=== PATIENT | male | born 1995 | race Hispanic/Latino ===

== ENCOUNTER 2022-09-10 10:12 | Emergency (ER) | payer SELFPAY ==
[~2022-09-10] VITALS: Ht 167.6 cm; Wt 67.8 kg
[2022-09-10 10:26] VITALS: BP 123/79
[2022-09-10 10:49] LABS: URINE BILIRUBIN - DIPSTICK NEGATIVE (NEGATIVE); URINE BLOOD DIPSTICK NEGATIVE (NEGATIVE); URINE COLOR YELLOW; URINE GLUCOSE - DIPSTICK NEGATIVE (NEGATIVE); URINE KETONE NEGATIVE (NEGATIVE); URINE LEUK ESTERASE NEGATIVE (NEGATIVE); URINE PROTEIN - DIPSTICK NEGATIVE (NEG-TRACE); URINE UROBILINOGEN - DIPSTICK 0.2 E.U./dL (0.2)
[2022-09-10 10:50] LABS: BASO% 0.7 % (0-3); EOS% 3.3 % (0-8); HEMATOCRIT 46.1 % (39.0-50.0); IMMATURE GRANULOCYTES 0.2 % (0.0-5.0); LYMPH% 35.7 % (15-41); MEAN CELL VOLUME 89.9 fL CALC (80.0-100.0); MEAN CORPUSCULAR HGB 29.2 pG CALC (26.0-32.0); MEAN CORPUSCULAR HGB CONC 32.5 g/dL CAL (32.0-36.0); MONO% 5.7 % (2-13); NEUT# 2.93 thou/uL (1.82-7.42); NEUT% 54.4 % (42-76); RED BLOOD COUNT 5.13 mill/uL (4.70-6.10); RED CELL DISTRI WIDTH 11.8 % (11.5-15.5)
[2022-09-10 10:53] LABS: URINE NITRITE - DIPSTICK NEGATIVE (Negative)
[2022-09-10 10:59] LABS: ALBUMIN 5.2 g/dL (3.2-5.0); ALKALINE PHOSPHATASE 71 u/l (38-126); ANION GAP 14 (6-22 (CALC)); BILIRUBIN, TOTAL 0.7 mg/dL (0.2-1.3); BUN 11 mg/dL (9-20); BUN/CREATININE RATIO 14 (12-20 (CALC)); CARBON DIOXIDE 28 mmol/l (22-30); CHLORIDE 103 mmol/l (95-108); CREATININE 0.8 mg/dL (0.7-1.3); GFR FOR AFR.AMER. > 60 ML/MIN (>=60 (CALC)); GFR OTHER RACES > 60 ML/MIN (>=60 (CALC)); POTASSIUM 3.9 mmol/l (3.5-5.1); SGOT/AST 44 u/l (17-59); SODIUM 141 mmol/l (137-146); TOTAL PROTEIN 8.1 g/dL (6.3-8.2)
[2022-09-10] MEDS ORDERED: NAPROXEN500 MG PO (13:08)
[2022-09-10 13:10] VITALS: BP 123/79
== END 2022-09-10 13:16 | disposition home or self-care (01) | DRG 392 ==
LOC: ED 10:12
PROVIDERS: Family Medicine
DX: R10.32 Left lower quadrant pain (principal); R10.31 Right lower quadrant pain; N50.812 Left testicular pain